=== PATIENT | female | born 1980 | race African-American/Black ===

== ENCOUNTER 2019-08-09 13:26 | Emergency (ER) | payer OTHER, SELFPAY ==
--- NOTE | 2019-08-09 13:31 | ED.URI ---
HPI - URI/Sore Throat General Chief Complaint: Upper Respiratory Infection Stated Complaint: congested/lindsay/cough/sore throat Time Seen by Provider: 08/09/19 13:55 Source: patient and RN notes reviewed Mode of arrival: ambulatory Limitations: no limitations History of Present Illness HPI Narrative: 39 old female presents with concern for sinus congestion, pressure, drainage, sore throat, headache, cough. Reports symptoms started Thursday. Reports taking [id number] cold medicines with little relief. MD elicited complaint: nasal congestion Related Data Home Medications Medication Instructions Recorded Confirmed lisinopril-hydrochlorothiazide 1 tablet PO DAILY 08/09/19 08/09/19 norethindrone-e.estradiol-iron 1 tablet PO DAILY 08/09/19 08/09/19 [07/11 (28)] Allergies Allergy/AdvReac Type Severity Reaction Status Date / Time azithromycin Allergy Mild Nausea and Verified 08/09/19 13:46 Vomiting Review of Systems Review of Systems: Narrative: CONSTITUTIONAL: Reports malaise, sweats. Denies chills or fever. EYES: Denies visual changes, redness, or discharge. ENT: Reports rhinorrhea, congestion, sinus pain, otalgia and sore throat. CARDIOVASCULAR: Denies chest pain, palpitations, or edema. RESPIRATORY: Reports cough. Denies dyspnea. GASTROINTESTINAL: Denies abdominal pain, nausea, vomiting, diarrhea SKIN: Denies rash or itching. MUSCULOSKELETAL: Denies myalgia. NEUROLOGIC: Denies headache. All systems reviewed & are unremarkable except as noted in HPI and below PMFSH Comments At time of signature, agree with nursing past medical, surgical, social and family history. There is no relevant family history pertinent to the presenting complaint Exam Narrative: Exam Narrative: GENERAL: Well-appearing, well-nourished, and in no acute distress. HEAD: Normocephalic EYES: PERRLA, conjunctivae clear ENT: Nares clear, turbinates edematous and erythematous, clear discharge. Mucous membranes moist. Right TM pearly craig with dull light reflex, left TM erythematous; no tragal tenderness. Oropharynx erythematous without lesions. Tonsils enlarged and without exudate, no drooling, no hoarseness, no trismus. NECK: Supple. No lymphadenopathy CHEST: Clear to auscultation, breath sounds equal. No wheezing, rhonchi, rales, or stridor. No respiratory distress, speaks in full sentences. HEART: Regular rate and rhythm. No murmur heard. Normal peripheral pulses. SKIN: Warm, dry, no rash. NEURO: Alert and oriented x3. PSYCH: Normal mood and affect Course Course Emergency Course: Patient is aware of diagnosis, understands and agrees to treatment plan. Anticipatory guidance given. Patient agrees to follow-up as directed and is aware of reasons to seek care at the emergency department. Portions of this record may have been created with voice recognition software Vital Signs Vital signs: Vital Signs Temperature 99.0 F 08/09/19 13:38 Pulse Rate 85 08/09/19 13:38 Respiratory Rate 18 08/09/19 13:38 Blood Pressure 140/81 08/09/19 13:38 Pulse Oximetry 100 08/09/19 13:38 Temperature 99.0 F 08/09/19 13:38 Pulse Rate 85 08/09/19 13:38 Respiratory Rate 18 08/09/19 13:38 Blood Pressure 140/81 08/09/19 13:38 Pulse Oximetry 100 08/09/19 13:38 Reviewed. Patient has current diagnosis of hypertension MDM - URI/Sore Throat MDM Narrative Medical decision making narrative: Differential diagnosis considered: Strep pharyngitis, allergic rhinitis, upper respiratory tract infection, sinusitis, rhinosinusitis, nasopharyngitis. viral pharyngitis, otitis media, otitis externa, pneumonia, bronchitis, viral cough syndrome, viral syndrome, and influenza. Exam findings show no acute concerns or changes; patient is non-toxic appearing and is in no distress. Patient is appropriate for outpatient treatment and follow-up. Lab Data Attestation: I reviewed the patient's lab results. Labs: Influenza A Screen
[2019-08-09 13:38] VITALS: BP 140/81; PULSE 85; RESP 18; TEMP 37.2; O2SAT 100
== END 2019-08-09 14:13 | disposition home or self-care (01) ==
PROVIDERS: Emergency Provider Nurse Practitioner; PCP Family Medicine
DX: H66.002 Acute suppurative otitis media without spontaneous rupture of ear drum, left ear (principal); I10 Essential (primary) hypertension; M32.9 Systemic lupus erythematosus, unspecified
CPT/HCPCS: 87804; 99213; G0463

== ENCOUNTER 2020-10-03 09:18 | Outpatient (CLI) | payer OTHER, SELFPAY | END 2020-10-03 09:19 | disposition home or self-care (01) | LOC: ANHCOVIDVC 09:18 | PROVIDERS: PCP Family Medicine | DX: Z23 Encounter for immunization (principal) | CPT/HCPCS: 0001A; 91300 ==

== ENCOUNTER 2020-10-24 09:16 | Outpatient (CLI) | payer OTHER, SELFPAY | END 2020-10-24 09:17 | disposition home or self-care (01) | LOC: ANHCOVIDVC 09:16 | PROVIDERS: PCP Family Medicine | DX: Z23 Encounter for immunization (principal) | CPT/HCPCS: 0002A; 91300 ==

== ENCOUNTER 2022-05-18 10:04 | Emergency (ER) | payer OTHER, SELFPAY ==
[2022-05-18 10:32] VITALS: BP 130/86; PULSE 68; RESP 18; TEMP 36.4; O2SAT 100
--- NOTE | 2022-05-18 11:02 | ED.GENADULT ---
HPI - General Adult General Chief complaint: Eye Problems Stated complaint: bilateral eye swelling Time Seen by Provider: 05/18/22 10:49 Source: patient Limitations: no limitations History of Present Illness HPI narrative: Patient presents today complaining of sinus pressure and drainage x2 weeks. She has been trying Sudafed, Zyrtec, and saline nasal spray without much relief. She is also complaining of bilateral eye drainage and eyelid swelling with morning crustiness since January while she was on vacation in [place]. Believe this was allergy symptoms and has been using Visine drops and Benadryl without much relief. Denies vision changes. Related Data Home Medications Medication Instructions Recorded Confirmed norethindrone 1 mg-ethinyl 1 tablet PO DAILY 08/09/19 05/18/22 estradiol 20 mcg (21)-iron 75 mg (7) tablet (07/11 (28)) cholecalciferol (vitamin D3) 50 50 mcg PO DAILY 04/05/21 05/18/22 mcg (2,000 unit) capsule Allergies Allergy/AdvReac Type Severity Reaction Status Date / Time azithromycin Allergy Mild Nausea and Verified 05/18/22 10:29 Vomiting Review of Systems Review of Systems: CONSTITUTIONAL: Denies body aches, fever, chills, or sweats. EYES: Denies visual changes, redness. + Bilateral eye drainage ENT: Denies rhinorrhea, congestion, sore throat, or otalgia.+ sinus pressure and drainage CARDIOVASCULAR: Denies chest pain, palpitations, or edema. RESPIRATORY: Denies cough or dyspnea. GASTROINTESTINAL: Denies abdominal pain, nausea, vomiting, or diarrhea. GENITOURINARY: Denies dysuria or hematuria. SKIN: Denies rash, itching, or wounds. MUSCULOSKELETAL: Denies back pain, joint pain, or myalgia. NEUROLOGIC: Denies headache, numbness, tingling, or weakness. PSYCH: Denies depression or anxiety. [facility] Past Medical History Medical History Benign essential HTN Constipation by delayed colonic transit GERD (gastroesophageal reflux disease) Irritable bowel syndrome Lupus (systemic lupus erythematosus) Preeclampsia Social History Social History Social History: Smoking status: Never smoker Second hand tobacco smoke exposure: No Alcohol intake: current Alcohol use details: Occasionally Substance use: never Substance use type: does not use Gender identity (if verbalized by the patient): Female Sexual Orientation (if Verbalized by the Patient): Straight or Heterosexual Comments At time of signature, I have reviewed and agree with nursing past medical, surgical, social and family history unless otherwise noted. Please see nursing chart for further information. There is no relevant family history pertinent to the presenting complaint Exam Narrative: GENERAL: Mildly ill-appearing, well-nourished, and in no acute distress. HEAD: Normocephalic, atraumatic. EYES: EOMI. PERRL. + bilateral injected conjunctiva. Slight swelling of the bilateral upper and lower eyelids. No obvious drainage at this time. ENT: Mucous membranes pink and moist. Nares Congested. Bilateral swollen and erythematous nasal turbinates. Bilateral tenderness of the maxillary and sphenoid sinuses. No rhinorrhea. Bilateral serous effusions without evidence of bacterial infection.. Throat normal. Uvula midline. NECK: Normal AROM. Supple. No lymphadenopathy. CHEST: No respiratory distress. Clear to auscultation. HEART: Regular rate and rhythm. No murmur appreciated. Normal peripheral pulses. EXTREMITIES: Normal range of motion. No edema. SKIN: Warm, dry, no rash. Capillary refill normal. Normal skin turgor. NEURO: No focal deficits. Alert and oriented x3. Gait steady. PSYCH: Normal affect. No signs of depression or anxiety. Course Course Level of Care: Express Care Visit Vital Signs Vital signs: Vital Signs Temperature 97.5 F L 05/18/22 10:32 Pul
== END 2022-05-18 11:17 | disposition home or self-care (01) ==
PROVIDERS: Emergency Provider Nurse Practitioner; PCP Family Medicine
DX: H10.9 Unspecified conjunctivitis (principal); J01.90 Acute sinusitis, unspecified; I10 Essential (primary) hypertension; K21.9 Gastro-esophageal reflux disease without esophagitis; M32.9 Systemic lupus erythematosus, unspecified
CPT/HCPCS: 99213; G0463

== ENCOUNTER → 2022-07-18 08:26 | Outpatient (CLI) | payer OTHER, SELFPAY ==
--- NOTE | ~2022-07-18 | US_ITS ---
Pelvic ultrasound. Clinical History: Fibroids Technique: Realtime transabdominal and transvaginal scanning of the pelvis was performed. Color flow Doppler and Doppler spectral analysis were performed. Findings: The uterus is retroverted. The endometrial stripe has a thickness of 4 mm. Ill-defined fun ayaka fibroid measures approximately 3.4 x 3.1 x 2.9 cm, intramural to partially subserosal. The right ovary measures 3.3 x 1.8 x 2.1 cm. No significant right ovarian or adnexal mass is seen. The left ovary measures 2.8 x 1.5 x 2.4 cm. No significant left ovarian or adnexal mass is seen. Vascular flow present in both ovaries. There is no evidence of free fluid in the cul de sac. Impression: 3.4 cm fundal fibroid, as detailed above. Reviewed, dictated and finalized at [facility]. [employer]IC[employer] Impression: 3.4 cm fundal fibroid, as detailed above.
== END ==
PROVIDERS: PCP Family Medicine; Visit Provider Obstetrics & Gynecology Gynecology
DX: D25.9 Leiomyoma of uterus, unspecified (principal)
CPT/HCPCS: 76830

== ENCOUNTER → 2022-09-15 10:11 | Outpatient (CLI) | payer OTHER, SELFPAY ==
--- NOTE | ~2022-09-15 | MM_ITS ---
EXAMINATION: MM screening yanelis BI w thad HISTORY: Screening TECHNIQUE: Craniocaudal and mediolateral oblique 3-D tomosynthesis images were obtained and synthetic 2-D images were generated. CAD analysis was submitted and interpreted. COMPARISON: No prior mammogram is available for comparison at this institution. BREAST PARENCHYMAL COMPOSITION: There are scattered areas of fibroglandular density. FINDINGS: There is a small 5 mm mass in the lower inner quadrant of the right breast posteriorly. No evidence for malignancy in the left breast. IMPRESSION: 1. Focal 5 mm right breast mass, lower inner quadrant posteriorly. 2. Additional spot compression and mediolateral views with possible follow-up breast ultrasound recom mended. BI-RADS Category 0: Incomplete: Needs additional imaging evaluation. Reviewed, dictated and finalized at location A. IMPRESSION: 1. Focal 5 mm right breast mass, lower inner quadrant posteriorly. 2. Additional spot compression and mediolateral views with possible follow-up b reast ultrasound recommended. BI-RADS Category 0: Incomplete: Needs additional imaging evaluation.
== END ==
PROVIDERS: PCP Family Medicine; Visit Provider Obstetrics & Gynecology Gynecology
DX: Z12.31 Encounter for screening mammogram for malignant neoplasm of breast (principal); N63.10 Unspecified lump in the right breast, unspecified quadrant
CPT/HCPCS: 77063; 77067

== ENCOUNTER 2022-09-20 08:54 | Outpatient (CLI) | payer OTHER, SELFPAY ==
[2022-09-20 09:22] LABS: Hematocrit 38.1 % (37.0-47.0); Hemoglobin 11.9 g/dL (12.0-15.0)
== END 2022-09-20 08:55 | disposition home or self-care (01) ==
PROVIDERS: PCP Family Medicine; Visit Provider Obstetrics & Gynecology Gynecology
DX: N81.4 Uterovaginal prolapse, unspecified (principal); Z01.818 Encounter for other preprocedural examination
CPT/HCPCS: 36415; 85014; 85018; 86850; 86900; 86901

== ENCOUNTER 2022-09-29 00:06 | Day surgery (SDC) | payer OTHER, SELFPAY ==
--- NOTE | 2022-09-17 14:32 | PC.NURSE ---
Report to the Outpatient Waiting Room, entrance under the green pavilion located off [facility], at time 0600 on date 09/29/22. Planned Procedure Time:0730. Time changes happen often and if your time is changed the preop area will call you the afternoon before. - You and your visitor will be asked to self-screen and do not enter if you have any COVID symptoms. - Only one visitor is requested with a max of two and NO children visitors are allowed at this time. - The patient visitor may be requested to leave or wait in car when not with patient due to distancing restrictions. - A mask is optional within the hospital at this time. Patients may have clear liquids (water, carbonated beverages, clear teas, apple juice) until 3 hours prior to surgery with a maximum of 20 ounces. 0430 - No food from midnight until time of surgery - Infants may have breast milk until 4 hours before surgery, formula 6 hours prior to surgery. - Children will be allowed to drink immediately following surgery. If applicable, please bring a bottle or sippy cup to assist with drinking. Juice, water, soda, and popsicles are readily available. For infants on formula, please bring formula the day of surgery. Pacifiers are allowed. Take the following medications with a SIP of water the morning of surgery: amlodipine, control, omeprazole DO NOT STOP ANY OF YOUR OTHER PRESCRIPTION MEDICATIONS PRIOR TO SURGERY ?EXCEPT THE FOLLOWING Medications to discontinue per physician lisinopril, vitamins ans and supplements Date to take last dose lisinopril- 09/28/22, vitamins & supplements 09/26/22 Please no make-up, nail divehi, hairspray, perfume, deodorant, or body powder the day of surgery. No jewelry (including any body piercings) or valuables the day of surgery, leave them at home. Please take a shower or bath the night before, or the morning of, surgery with an antibacterial soap. Wear comfortable, loose fitting clothing. Children are encouraged to wear pajamas. - Jewelry must be removed prior to entering the operating room. Rings and piercings that are not removed may be cut off. - The hospital will not accept responsibility for valuables. - Please leave all valuables, including medications, at home the day of surgery. If you are going home after surgery, a licensed helper/driver must drive you home. - NO public transportation without another adult if you receive anesthesia. - We recommend that an adult stay with you for 24 hours following discharge. - We also recommend that you do not drive, make important decision, drink alcoholic beverages, or take any drugs that were not prescribed by your health care provider for at least 24 hours after your discharge time. For Pediatric surgeries, we recommend two adults accompany the child home. Follow any additional instructions given to you from your surgeon. If you or anyone in your household have experienced Covid symptoms in the past week, please notify your surgeon or the nurse liaison at the phone number below for possible testing. Telephone instructions given to Veronica Bryce and asked if any additional questions and then verbalized understanding. Patient advised to call surgeon office or pre surgery nurse liaison [phone] if any additional questions.
[2022-09-17 14:41] VITALS: BMI 31.5
[2022-09-29] VITALS (10 sets, daily range): BP systolic 110–162; BP diastolic 63–90; PULSE 62–86; RESP 12–18; TEMP 36.3–37.2; O2SAT 97–100
[2022-09-29] MEDS: ACETAMINOPHEN 500 MG TABLET 1000 MG PO (06:00)
[2022-09-29] MEDS: KETOROLAC 15 MG/ML VIAL (*BKC) IV PUSH (06:00)
[2022-09-29] MEDS: LACTATED RINGERS 1,000 ML 30 ML IV CONT ×2 (06:30→09:19)
--- NOTE | 2022-09-29 06:45 | P.PNAN_ITS ---
Anes - Initial Pre Proc Eval Procedure: Operation Date: 09/29/22 07:30 Proposed Procedures p Laparoscopic Assisted Vaginal Hysterectomy with Bilateral Salpingectomy - Desiree Anderson MD Date/Time: 09/29/22 06:45 Surgeon: Desiree Anderson MD Pre Op Diagnosis: Uterine Prolapse Patient Data Age: 42 Gender: F Height: 1.68 m Weight: 88.6 kg Allergies Allergy/AdvReac Type Severity Reaction Status Date / Time azithromycin Allergy Mild Nausea and Verified 09/17/22 14:10 Vomiting Home Medications Medication Instructions Recorded Confirmed Type norethindrone 1 mg-ethinyl 1 tablet PO DAILY 08/09/19 09/17/22 History estradiol 20 mcg (21)-iron 75 mg (7) tablet (07/11 ()) cholecalciferol (vitamin D3) 50 50 mcg PO DAILY 04/05/21 09/17/22 History mcg (2,000 unit) capsule lisinopril 20 1 tablet PO DAILY #90 tabs 09/15/22 09/17/22 Rx mg-hydrochlorothiazide 25 mg tablet omeprazole 40 mg capsule,delayed See Rx Instructions .Route 09/15/22 09/17/22 Rx release .COMPLEX #90 caps amlodipine 10 mg tablet 10 mg PO DAILY 09/17/22 09/17/22 History vitamin B complex (B 1 tablet PO DAILY 09/17/22 09/17/22 History Complex-Vitamin B12 tablet) Patient hx anesthesia problems: none Family hx anesthesia problems: none Results Review: All pre-operative results and documents have been reviewed as part of the pre- operative evaluation. [facility] Past Medical History Medical History Benign essential HTN Constipation by delayed colonic transit GERD (gastroesophageal reflux disease) Irritable bowel syndrome Lupus (systemic lupus erythematosus) Preeclampsia Social History Social History Social History: Smoking status: Never smoker Second hand tobacco smoke exposure: No Alcohol intake: current Alcohol use details: 1-2 drinks per month Substance use: current Substance use type: marijuana Other substance usage details: gummy Living arrangements: with family Occupation/Education: occupation Gender identity (if verbalized by the patient): Female Sexual Orientation (if Verbalized by the Patient): Straight or Heterosexual Spiritual care concerns: No Anes - Eval Final PreProcedure Day of Procedure 09/29/22 06:45 Patient weight: obese Heart: regular rate and rhythm Lungs: clear to auscultation Airway: Mallampati scale class II Neurological: alert and oriented Last oral intake: >/= 8 hours ASA classification: III Emergent: no Anesthetic plan: proceed Anesthesia type and monitoring: general ETT and standard monitoring Results Review: All pre-operative results and documents have been reviewed as part of the pre- operative evaluation. Informed Consent: The patient's anesthetic plan and its attendant risks and benefits were discussed with the patient/family/POA. Questions were solicited and answers provided to the satisfaction of the patient/family/POA.
--- NOTE | 2022-09-29 07:22 | WPDHPUPDATE1 ---
History and Physical Update Update Date/Time: 09/29/22 07:22 History and Physical has been reviewed, including an updated exam of the patient. There are NO changes in the patient's condition. Risks, benefits, and alternatives have been discussed and questions answered. Patient agrees to proceed with procedure.
--- NOTE | 2022-09-29 07:22 | PM.IMHP ---
H&P: HPI History of Present Illness Date/Time: 09/29/22 07:22 Chief Complaint: uterine prolapse Narrative: the patient is a 42-year-old 1 para 1 admitted for laparoscopic assisted total vaginal hysterectomy bilateral salpingectomy. The patient has complaints of pelvic pressure and try to use the pessary. Patient did not like her pessary. She has elected to proceed with hysterectomy. Due to the history of section and fibroids the plan is for laparoscopic assisted vaginal hysterectomy. In addition the patient would prefer her tubes to be removed if possible after reviewing the benefits. Risks of infection, bleeding, injury to internal organs ( bowel, bladder, ureters, ovaries), deep vein thrombosis, and conversion to open procedure were reviewed. Patient voices understanding and agrees to proceed. The patient did receive medical clearance from her primary physician. Review of Systems Review of Systems: All systems reviewed & are unremarkable except as noted in HPI and below ( History of present on the) [facility] Past Medical History Medical History (Updated 09/29/22 @ 07:29 by Desiree Anderson MD) Benign essential HTN Constipation by delayed colonic transit GERD (gastroesophageal reflux disease) Irritable bowel syndrome Lupus (systemic lupus erythematosus) Preeclampsia 2018 Surgical History Surgical History (Updated 09/29/22 @ 07:26 by Desiree Anderson MD) History of Social History Social History Social History: Smoking status: Never smoker Second hand tobacco smoke exposure: No Alcohol intake: current Alcohol use details: 1-2 drinks per month Substance use: current Substance use type: marijuana Other substance usage details: gummy Living arrangements: with family Occupation/Education: occupation Gender identity (if verbalized by the patient): Female Sexual Orientation (if Verbalized by the Patient): Straight or Heterosexual Spiritual care concerns: No Meds Home Medications and Allergies Home Medications Medication Instructions Recorded Confirmed Type norethindrone 1 mg-ethinyl 1 tablet PO DAILY 08/09/19 09/29/22 History estradiol 20 mcg (21)-iron 75 mg (7) tablet (June07/11 (28)) cholecalciferol (vitamin D3) 50 50 mcg PO DAILY 04/05/21 09/29/22 History mcg (2,000 unit) capsule lisinopril 20 1 tablet PO DAILY #90 tabs 03/27/23 04/10/23 Rx mg-hydrochlorothiazide 25 mg tablet omeprazole 40 mg capsule,delayed See Rx Instructions .Route 09/15/22 09/29/22 Rx release .COMPLEX #90 caps amlodipine 10 mg tablet 10 mg PO DAILY 09/17/22 09/29/22 History vitamin B complex (B 1 tablet PO DAILY 09/17/22 09/29/22 History Complex-Vitamin B12 tablet) Allergies Allergy/AdvReac Type Severity Reaction Status Date / Time azithromycin Allergy Mild Nausea and Verified 09/29/22 06:59 Vomiting Vital Signs Vital Signs - 24 hr 09/29/22 06:30 Temperature 97.6 F Pulse Rate 69 Respiratory Rate 16 Blood Pressure 162/90 H Pulse Oximetry 100 Oxygen Delivery Room Air Exam Const: General: healthy appearing and alert Orientation/consciousness: patient oriented x3 Resp: Effort & Inspection: normal respiratory effort GI: GI Palp: Yes Soft to palpation, No Tenderness to palpation present (GI) and No Palpable mass present : External Female Exam: normal external appearance Speculum Exam - Vagina: normal appearance of the vagina and normal vaginal discharge Speculum Exam - Cervix: normal appearance of the cervix Bimanual exam- vagina & uterus: consistency normal, enlarged ( 7Cm with a 3cm fundal fibroid by ultrasound) and other ( uterine descent to introitus with Valsalva; no rectocele; 1st cystocele) Bimanual Exam- Adnexa, other: normal adnexae and No adnexal tenderness Neuro: General: patient oriented x3 Assessment and Plan Assessment and plan (1) Ut
[2022-09-29] MEDS: ceFAZolin 2 GM/D5W 50 ML 2 GM/50 ML BAG IVPB (07:34)
--- NOTE | 2022-09-29 09:09 | W.PM.PROC2 ---
Procedure Note - Detailed Date of Procedure 09/29/22 Pre-op Diagnosis Uterine Prolapse Post-op Diagnosis Same Procedure Performed laparoscopic-assisted vaginal hysterectomy bilateral salpingo-oophorectomy Surgeon Desiree Anderson MD Anesthesia General Findings normal-appearing tubes, ovaries, and uterus with a fundal fibroid; uterus prolapsed to the introitus under anesthesia Description of Procedure The patient is taken to the operating room and placed under anesthesia in the dorsal lithotomy position. She was prepped and draped in the usual sterile fashion. Bladder is drained with a Pacheco catheter which was left in place prior to my arrival. The bivalve speculum was placed in the vagina and the cervix grasped on the anterior lip with a tenaculum. The acorn manipulator was placed and the speculum removed. Attention was then turned to the abdomen where a vertical skin incision was made at the base of the umbilicus. The abdomen is tented with towel clamps and the Veress needle placed. Opening patient pressure was 6mmHg. Pneumoperitoneum was attempted to be obtained but patient pressure went quickly to 15. Veress needle was replaced and the same events occurred. The decision was made to place the port in the left upper quadrant. A scalpel was used to make a skin incision 1cm horizontal in the left upper quadrant. Veress needle was placed and opening patient pressure is 6mmHg. Pneumoperitoneum was attempted to be obtained but the patient had bradycardic episode. Pneumoperitoneum was released and the patient was treated by anesthesia see their notes. The 5mm long Optiview was then placed and intra-abdominal placement confirmed with the laparoscope. Pneumoperitoneum was obtained through the laparoscope port. Patient was placed in Trendelenburg and 2 incisions were made above the symphysis pubis 1 to the left 1 to the right and 5mm ports were placed in each. The blunt probe was used to inspect the pelvis with the above-stated findings. The right tube was grasped with an atraumatic grasper and the LigaSure was used to remove the tube which was removed through the port. The round ligament is also grasped with the LigaSure and cauterized and . The identical procedure was performed on the left side. The laparoscope is removed and the ports left in place. Pneumoperitoneum was reduced and attention was returned to the vagina. The short weighted speculum was placed posteriorly and a Bryn retractor was placed anteriorly. The cervix is injected in a circumferential manner with 1% lidocaine with epinephrine. A scalpel then used to incise the vaginal mucosa in a circumferential manner around the cervix. The vaginal mucosa was dissected off anteriorly with sharp blunt dissection. Once the peritoneum is entered sharply the Bryn retractor was replaced intraperitoneally. The posterior peritoneum was dissected off using sharp and blunt dissection. Once the peritoneum was entered it is entered sharply and the long curved weighted speculum was placed. The uterosacral and cardinal ligaments are serially clamped, transected, and suture ligated with 0 Vicryl. They were tagged for future use. The uterine vessels are clamped, transected, and suture ligated with 0 Vicryl. The posterior fundus is grasped with a towel clamp and the uterus delivered through the cul-de-sac. The remaining posterior leaf of the broad ligaments and utero-ovarian ligament is clamped, transected, and suture ligated with 0 Vicryl. The specimen was handed off. All pedicles were inspected and noted to be hemostatic. The long weighted speculum was removed and the short weighted speculum replaced. The Bryn retractor was removed from the peritoneum and the peritoneum was grasped anteriorly and posteriorly with a Peon. The peritoneum was then closed incorporating the previously tagged uterosacral and cardinal ligaments. The peritoneum was closed in a pursestring manner.
--- NOTE | 2022-09-29 09:18 | PM.DS ---
DS: Admitting Diagnosis Discharge Date 09/30/22 Admitting Diagnosis uterine prolapse DS: Discharge Diagnosis Discharge Diagnosis (1) Status post laparoscopic assisted vaginal hysterectomy (LAVH): Code(s): Z90.710 - Acquired absence of both cervix and uterus Status: Acute DS: Summary Hospital Course Hospital Course: At the time of discharge, the patient is tolerating regular diet, voiding, and ambulating. Status at Discharge Functional status at discharge: independent ambulation Overall status at discharge: patient is progressing back to baseline Time Spent with Patient Time attestation: Total time spent providing and/or coordinating discharge services: DS: Data Data Completed and Pending Pending studies at discharge: Pending at discharge 09/29/22 08:58 Surgical [PTH] Routine Discharge Plan Discharge Patient Disposition: Home, Self-Care Discharge Instructions: pelvic rest; no driving x 2 weeks Stand Alone Forms: General Discharge Instructions Follow-up/Referrals: Desiree Anderson MD [Physician] - Discharge Medications: New hydrocodone-acetaminophen 5-325 mg tablet 1 tablet PO Q4H PRN (Reason: pain) Qty: 20 0RF Continued cholecalciferol (vitamin D3) 50 mcg (2,000 unit) capsule 50 mcg PO DAILY lisinopril-hydrochlorothiazide 20-25 mg tablet 1 tablet PO DAILY Qty: 90 2RF omeprazole 40 mg capsule,delayed release(DR/EC) See Rx Instructions .ROUTE .COMPLEX Qty: 90 3RF Dose Instruction: Take 1 capsule by mouth once daily Rx Instructions: Take 1 capsule by mouth once daily vitamin B complex [B Complex-Vitamin B12] Tablet 1 tablet PO DAILY amlodipine 10 mg tablet 10 mg PO DAILY Discontinued norethindrone-e.estradiol-iron [07/11 (28)] 1 mg-20 mcg (21)/75 mg (7) Tablet 1 tablet PO DAILY Other Ambulatory Orders: Basic Metabolic Panel (Routine) Timeframe: 3 Weeks Location: Determined by Patient Ordered By: Stephon Escalante
[2022-09-29] MEDS: fentaNYL CITRATE INJ (*CRX) 100 MCG/2 ML VIAL 25 MCG IV PUSH ×2 (09:50→10:00)
--- NOTE | 2022-09-29 10:26 | ADMGEN ---
This patient, Veronica Wu, was admitted to OB 2nd Floor Room 289-00. Patient/family oriented to hospital policies and general routines including ID bracelet, bed and alarms, visiting hours, pain management, procedures, bathroom and other care routines, personal items, smoking policy, room service/diet, and visiting hours. Information on how to activate the Rapid Response Team has been discussed. Patient/Family are encouraged to report perceived risks to care and to ask questions if they do not understand what they are told or what they should do.
[2022-09-29] MEDS: DEXTROSE 5%/LACTATED RINGERS 1,000 ML 125 ML IV CONT (10:53)
[2022-09-29] MEDS: KETOROLAC 30 MG/ML VIAL (*BKC) IV PUSH ×3 (10:54→22:40)
[2022-09-29] MEDS: HYDROcodone/acetaminophen (*CRX) 10-325 MG TABLET 1 TAB PO ×4 (12:31→22:40)
[2022-09-29] MEDS: SIMETHICONE 80 MG TAB.CHEW PO (14:57)
[2022-09-29] MEDS: ONDANSETRON INJ 4 MG/2 ML VIAL IV PUSH (17:51)
[2022-09-29] MEDS: LORATADINE 10 MG TABLET PO (19:26)
[2022-09-30 04:20] VITALS: BP 136/75; PULSE 62; RESP 18; TEMP 36.5; O2SAT 99
[2022-09-30] MEDS: HYDROcodone/acetaminophen (*CRX) 10-325 MG TABLET 1 TAB PO (04:20)
[2022-09-30] MEDS: KETOROLAC 30 MG/ML VIAL (*BKC) IV PUSH (04:20)
[2022-09-30 04:43] LABS: Basophils Percent Auto 0.1 % (0.2-1.2); Hematocrit 34.1 % (37.0-47.0); Hemoglobin 10.8 g/dL (12.0-15.0); Immature Granulocyte Absolute 0.05 K/mm3 (0.00-0.031); Immature Granulocyte Percent A 0.4 % (0-0.5); Lymphocytes Percent Auto 9.7 % (18.3-44.2); Mean Corpuscular HGB Conc 31.7 g/dl (32-36); Mean Corpuscular Volume 69.6 fl (80-100); Mean Platelet Volume 9.9 fl (7.4-10.4); Monocytes Absolute Auto 1.1 K/mm3 (0.1-0.6); Monocytes Percent Auto 8.3 % (2.6-8.5); Neutrophils Absolute Auto 10.9 K/mm3 (1.3-6.7); Neutrophils Percent Auto 81.5 % (45.5-73.1); Platelet Count Result 416 k/mm3 (150-375); White Blood Count 13.4 K/mm3 (4.5-10.0)
[2022-09-30 05:17] LABS: Hypochromasia 1+ (NORMAL); Microcytosis 2+ (NORMAL); Schistocytes None Seen (NORMAL)
--- NOTE | 2022-09-30 07:59 | PM.GYNPNOP ---
CLERK MANAGER - A/P Postoperative Procedures: Procedures Operation Date: 09/29/22 07:30 Actual Procedure Side Surgeon p Laparoscopic Assisted Vaginal Hysterectomy with Bilateral Salpingectomy Bilateral Desiree Anderson MD Postoperative day: 1 Postoperative status: doing well Postoperative plan: routine post-op care Time Spent With Patient Time: Total time spent is greater than 50% in coordination of care (as documented) at patient's floor/unit and/or counseling patient: Time with patient: less than 15 minutes CLERK MANAGER- PN:Subj Post-Op Subjective Date/time seen: 09/30/22 07:59 Subjective: patient has no complaints and pain is well controlled Exam Narrative: abdomen soft, nt inc-bandages clear CLERK MANAGER - PN: Obj Data Vital Signs Vital Signs: Vital Signs - 24 hr 09/29/22 09:19 09/29/22 09:30 09/29/22 09:45 Temperature 98.2 F Pulse Rate 86 74 69 Respiratory Rate 16 15 12 Blood Pressure 110/69 121/80 126/79 Pulse Oximetry 97 100 97 Oxygen Delivery Simple Face Mask Simple Face Mask Room Air Oxygen Flow Rate 8 8 09/29/22 10:00 09/29/22 10:15 09/29/22 10:40 Temperature 97.4 F L Pulse Rate 74 69 62 Respiratory Rate 14 17 16 Blood Pressure 126/77 130/80 122/71 Pulse Oximetry 97 98 98 Oxygen Delivery Room Air Room Air Oxygen Flow Rate 09/29/22 15:30 09/29/22 15:30 09/29/22 18:50 Temperature 99.0 F 98.1 F Pulse Rate 76 79 Respiratory Rate 16 18 Blood Pressure 126/63 136/75 Pulse Oximetry 100 98 Oxygen Delivery Room Air Oxygen Flow Rate 09/29/22 18:50 09/29/22 22:40 09/29/22 22:40 Temperature 97.9 F Pulse Rate 70 Respiratory Rate 18 Blood Pressure 132/69 Pulse Oximetry 99 Oxygen Delivery Room Air Room Air Oxygen Flow Rate 09/30/22 04:20 09/30/22 04:20 Temperature 97.7 F Pulse Rate 62 Respiratory Rate 18 Blood Pressure 136/75 Pulse Oximetry 99 Oxygen Delivery Room Air Oxygen Flow Rate Intake/Output Intake/Output: Intake & Output 09/27/22 09/28/22 09/29/22 09/30/22 23:59 23:59 23:59 23:59 Intake Total 2500 350 Output Total 2120 650 Balance 380 -300 Meds/Results Medications: Active Medications Generic Name Dose Route Start Last Admin Trade Name Freq PRN Reason Stop Dose Admin Hydrocodone Bitart/Acetaminophen 1 tab 09/29/22 10:21 Hydrocodone/Acetaminophen (*Crx) 5-325 Mg Tablet PO Q3H PRN Pain Rated 5 or Less Hydrocodone Bitart/Acetaminophen 1 tab 09/29/22 10:21 09/30/22 04:20 Hydrocodone/Acetaminophen (*Crx) 10-325 Mg Tablet PO 1 tab Q3H PRN Administration Pain Rated 6 or Greater Amlodipine Besylate 10 mg 09/30/22 09:00 Amlodipine Besylate 5 Mg Tablet PO DAILY MARIANO Hydrochlorothiazide 25 mg 09/30/22 09:00 Hydrochlorothiazide 25 Mg Tablet PO QAM MARIANO Fentanyl Citrate 600 mcg in 30 mls @ 0.5 mls/hr 09/29/22 10:21 Fentanyl 600 Mcg/Ns 30 Ml Medical Recruiter IV CONT PRN PRN MEDICAL RECORD ASSISTANT Management Protocol 10 MCG/HR Ibuprofen 600 mg 09/29/22 10:21 Ibuprofen 600 Mg Tablet PO Q6H PRN Cramping Ketorolac Tromethamine 30 mg 09/29/22 10:21 09/30/22 04:20 Ketorolac 30 Mg/Ml Vial (*Bkc) IV PUSH 10/04/22 10:20 30 mg Q6H PRN Administration Pain Rated 4-6 Lisinopril 20 mg 09/30/22 09:00 Lisinopril 20 Mg Tablet PO QAM MARIANO Naloxone HCl 0.1 mg 09/29/22 10:21 Naloxone Hcl 0.4 Mg/Ml Vial IV PUSH Q2M PRN Respiratory rate less than 10 Ondansetron HCl 4 mg 09/29/22 10:21 09/29/22 17:51 Ondansetron Inj 4 Mg/2 Ml Vial IV PUSH 4 mg Q6H PRN Administration Nausea And Vomiting Simethicone 80 mg 09/29/22 10:21 09/29/22 14:57 Simethicone 80 Mg Tab.Chew PO 80 mg Q2H PRN Administration Gas Labs 09/30/22 04:25 Labs: Laboratory Results - last 24 hr 09/30/22 04:25 WBC 13.4 H RBC 4.90 Hgb 10.8 L Hct 34.1 L MCV 69.6 L MCH 22.0 L MCHC 31.7 L RDW 15.0 H Plt Count 416
[2022-09-30 08:25] VITALS: BP 135/79; PULSE 61; RESP 16; TEMP 36.6; O2SAT 100
[2022-09-30] MEDS: DOCUSATE SODIUM 100 MG CAPSULE PO (08:56)
[2022-09-30] MEDS: SIMETHICONE 80 MG TAB.CHEW PO (08:56)
[2022-09-30] MEDS: HYDROcodone/acetaminophen (*CRX) 5-325 MG TABLET 1 TAB PO (08:56)
[2022-09-30] MEDS: hydroCHLOROthiazide 25 MG TABLET PO (08:59)
[2022-09-30] MEDS: lisinopriL 20 MG TABLET PO (08:59)
== END 2022-09-30 10:35 | disposition home or self-care (01) ==
LOC: ANHSURGERY 09:19 → ANHOB2 10:28
PROVIDERS: PCP Family Medicine; Visit Provider Obstetrics & Gynecology Gynecology
PROC: 0UT9FZZ Resection of Uterus, Via Natural or Artificial Opening With Percutaneous Endoscopic Assistance (ICD-10-PCS; CPT 58552; principal; 2022-09-29 07:30)
DX: N81.4 Uterovaginal prolapse, unspecified (principal); D25.9 Leiomyoma of uterus, unspecified; I10 Essential (primary) hypertension; K21.9 Gastro-esophageal reflux disease without esophagitis; M32.9 Systemic lupus erythematosus, unspecified; F12.90 Cannabis use, unspecified, uncomplicated; E66.9 Obesity, unspecified; Z68.31 Body mass index [BMI] 31.0-31.9, adult
CPT/HCPCS: 58552; 36415; 85014; 85018; 85025; 86850; 86900; 86901; 88307; 99199; A9270; J0690; J1100; J1170; J1885; J2250; J2405; J2704; J3010; J7120; J7121

== ENCOUNTER → 2022-10-14 09:16 | Outpatient (CLI) | payer OTHER, SELFPAY ==
--- NOTE | ~2022-10-14 | MMUS_ITS ---
EXAMINATION: MM diagnostic yanelis RT w thad, US breast RT limited HISTORY: Focal 5 mm right breast mass, posterior right lower inner quadrant TECHNIQUE: Additional 3-D tomosynthesis images of the right breast were performed and synthetic 2-D i mages were generated. CAD analysis was submitted and interpreted. High resolution targeted right limi samara breast ultrasound was performed. COMPARISON: 09/15/2022 bilateral screening mammogram FINDINGS: MAMMOGRAPHIC FINDINGS: There is a circumscribed approximately 3.6 mm opacity in the deep posterior mid to lower inner right breast at approximately 4:00 position. ULTRASOUND: At 4:00 8 cm from the nipple there is a very posterior approximately 3.4 x 5 mm sonolucency with back wall enhancement, consistent with a small cyst. IMPRESSION: 1. Benign finding 2. Routine annual mammographic screening is recommended BI-RADS Category 2: Benign finding(s). Reviewed, dictated and finalized at location A. IMPRESSION: 1. Benign finding 2. Routine annual mammographic screening is recommended BI-RADS Category 2: Benign finding(s).
== END ==
PROVIDERS: PCP Family Medicine; Visit Provider Obstetrics & Gynecology Gynecology
DX: R92.8 Other abnormal and inconclusive findings on diagnostic imaging of breast (principal)
CPT/HCPCS: 76642; 77061; 77065; G0279

== ENCOUNTER 2024-08-07 12:44 | Emergency (ER) | payer OTHER, SELFPAY ==
--- NOTE | 2024-08-07 13:05 | ED_ITS ---
HPI - URI/Sore Throat General Chief Complaint: Upper Respiratory Infection Stated Complaint: Flu Symptoms Time Seen by Provider: 08/07/24 13:15 Source: patient Mode of arrival: ambulatory Limitations: no limitations History of Present Illness HPI Narrative: Veronica is a 44-year-old female patient presenting to the clinic today with complaints of cough, runny nose, congestion, nausea, and body aches times 4-5 days. No known fever. Denies any chest pain or shortness of breath. MD elicited complaint: cough and nasal congestion Related Data Home Medications ?Medication ?Instructions ?Recorded ?Confirmed ?Last Taken ?Type cholecalciferol (vitamin D3) 50 50 mcg PO DAILY 04/05/21 03/01/24 09/17/22 History mcg (2,000 unit) capsule vitamin B complex (B 1 tablet PO DAILY 09/17/22 03/01/24 09/15/22 History Complex-Vitamin B12 tablet) Allergies Allergy/AdvReac Type Severity Reaction Status Date / Time azithromycin Allergy Mild Nausea and Verified 08/07/24 12:58 Vomiting Review of Systems Review of Systems: Pertinent positives per HPI. Patient denies any fever, chills, rash, headache, visual changes, dizziness, shortness of breath, chest pain, palpitations, nausea, vomiting, diarrhea, constipation, abdominal pain, or any urinary issues. [facility] Past Medical History Medical History Constipation by delayed colonic transit Preeclampsia 2018 GERD (gastroesophageal reflux disease) Irritable bowel syndrome Lupus (systemic lupus erythematosus) Benign essential HTN Surgical History Surgical History History of Social History Social History Social History: Smoking status: Never smoker Second hand tobacco smoke exposure: No Alcohol intake: current Alcohol use details: 1-2 drinks per month Substance use: current Substance use type: marijuana Other substance usage details: gummy Do You Feel Safe in your Home?: Yes Lack of Transportation: No Lack of Food: Never True Current Housing: I Have Housing Concerned About Future Housing: No Difficulty Paying Gas/Electric Bills: No Difficulty Paying for Meds: No Currently Unemployed: No Education: Don't Know Difficulty w/ Childcare or Family Care: No Living arrangements: with family Occupation/Education: occupation Gender identity (if verbalized by the patient): Female Sexual Orientation (if Verbalized by the Patient): Straight or Heterosexual Spiritual care concerns: No Comments At the time of my signature, I reviewed and agree with the nursing past medical, surgical, social, and family history. There is no relevant family history pert inent to the patient complaint. Exam Narrative: General: Well-developed, well nourished, in no apparent distress Head: Normocephalic, atraumatic Eyes: Pupils equally round and reactive to light bilaterally, EOM intact, sclera and conjunctive clear, no discharge, lids normal Ears: TMs intact and congested, ear canals clear, no drainage, grossly hearing normal. Nose: Nares patent, clear nasal discharge, no inflammation, no sinus tenderness. Mouth: Oral pharynx without lesions or masses, good dentition, MMM. Neck: Supple, trachea midline, no enlargement of anterior or posterior cervical nodes, no thyroid masses or goiter palpable. Cardio: Regular rate and rhythm, s1 and s2 normal, no murmur appreciated. Resp: Clear to auscultation bilaterally, no rhonchi, rales, wheezing or rubs Course Course Emergency Course: Portions of this record may have been created with voice recognition software. Level of Care: Express Care Visit Vital Signs Vital signs: Vital signs reviewed MDM - URI/Sore Throat MDM Narrative Medical decision making narrative: At the time of visit patient is resting comfortably on the exam table. Patient appears to be nontoxic. Labs: Influenza testing was negative in the clinic today. Plan: I suspect patient has URI/viral syndrome. Supportive measures were discussed with the patient and they voiced understanding discharge instructions and agrees to treatment plan. Return precautions reviewed Differential Diagnosis Differential diagnosis: Likely upper respiratory infection, otitis media, sinusitis, viral infection, bronchitis, influenza, pharyngitis and other (COVID) Discharge Plan Discharge Clinical Impression: Viral infection Upper respiratory infection Qualifiers: URI type: unspecified URI Qualified Code(s): J06.9 - Acute upper respiratory infection, unspecified Patient Disposition: Home, Self-Care Condition: Stable Instructions: Antibiotic Form, Viral Syndrome (ED), Cold Symptoms (ED) Additional Instructions: Influenza testing was negative in the clinic today. No sign of bacterial infection in the clinic today May take Coricidin HBP for cold/flu symptoms Increase fluids and stay well hydrated Tylenol/motrin for pain/fever Flonase and OTC antihistamines as directed Vicks vapor rub to open sinuses Sinus rinses for congestion Cepacol spray, cough drops, throat lozenges, warm tea with honey/lemon, gargle salt water to soothe throat BRAT diet for diarrhea Clear liquids x 24 hours then advance as tolerated for nausea/vomiting Go to the ED if you develop a worsening in your condition- high fever not controlled by Tylenol or Motrin, dehydration, weakness, lethargy, shortness of breath, or chest pain. Follow up with your PCP in 3-5 days if symptoms persist. Patient Language: Guyanese Prescriptions: No Action cholecalciferol (vitamin D3) 50 mcg (2,000 unit) capsule 50 mcg PO DAILY vitamin B complex [B Complex-Vitamin B12] Tablet 1 tablet PO DAILY dicyclomine 10 mg capsule See Rx Instructions .ROUTE .COMPLEX Qty: 180 3RF Dose Instruction: Take 1 capsule by mouth twice daily Rx Instructions: Take 1 capsule by mouth twice daily montelukast 10 mg tablet See Rx Instructions .ROUTE .COMPLEX Qty: 90 1RF Dose Instruction: Take 1 tablet by mouth once daily Rx Instructions: Take 1 tablet by mouth once daily omeprazole 40 mg capsule,delayed release(DR/EC) See Rx Instructions .ROUTE .COMPLEX Qty: 90 0RF Dose Instruction: Take 1 capsule by mouth once daily Rx Instructions: Take 1 capsule by mouth once daily amlodipine 10 mg tablet See Rx Instructions .ROUTE .COMPLEX Qty: 90 1RF Dose Instruction: Take 1 tablet by mouth once daily Rx Instructions: Take 1 tablet by mouth once daily lisinopril-hydrochlorothiazide 20-25 mg tablet See Rx Instructions .ROUTE .COMPLEX Qty: 90 1RF Dose Instruction: Take 1 tablet by mouth once daily Rx Instructions: Take 1 tablet by mouth once daily fluticasone propionate 50 mcg/actuation spray,suspension See Rx Instructions .ROUTE .COMPLEX Qty: 16 5RF Dose Instruction: Use 1 spray(s) in each nostril once daily Rx Instructions: Use 1 spray(s) in each nostril once daily Follow-up/Referrals: PHYSICIAN,POOL PLAYER [Primary Care Provider] - Time of Disposition: 13:16 Quality NIHSS Nursing Documentation ED NIHSS nursing documentation: reviewed/agree
[2024-08-07 13:12] VITALS: BP 131/83; PULSE 74; RESP 16; TEMP 37.2; O2SAT 100
[2024-08-07 13:21] LABS: EDINFLUASCREEN Negative (Negative); EDINFLUBSCREEN Negative (Negative)
== END 2024-08-07 13:20 | disposition home or self-care (01) ==
PROVIDERS: Emergency Provider Nurse Practitioner Family
DX: B34.9 Viral infection, unspecified (principal); J06.9 Acute upper respiratory infection, unspecified; F12.90 Cannabis use, unspecified, uncomplicated; M32.9 Systemic lupus erythematosus, unspecified; I10 Essential (primary) hypertension; K21.9 Gastro-esophageal reflux disease without esophagitis
CPT/HCPCS: 87804; 99212; G0463

== ENCOUNTER 2024-09-12 13:35 | Outpatient (CLI) | payer OTHER, SELFPAY ==
--- NOTE | ~2024-09-12 | MM_ITS ---
EXAMINATION: MM screening yanelis BI w thad HISTORY: Screening TECHNIQUE: Craniocaudal and mediolateral oblique 3-D tomosynthesis images were obtained and synthetic 2-D images were generated. CAD analysis was submitted and interpreted. COMPARISON: 10/14/2022 and 09/15/2022 BREAST PARENCHYMAL COMPOSITION: There are scattered areas of fibroglandular density. FINDINGS: Interval development of subcentimeter asymmetries within the upper outer and upper inner ri ght breast for which spot compression views followed by an ultrasound is recommended. Otherwise stable parenchymal pattern without suspicious microcalcifications or architectural distorti on. IMPRESSION: Interval development of subcentimeter asymmetries within the upper outer and upper inner right breast for which spot compression views followed by an ultrasound is recommended. BI-RADS Category 0: Incomplete: Needs additional imaging evaluation. Reviewed, dictated and finalized at location A. IMPRESSION: Interval development of subcentimeter asymmetries within the upper outer and up per inner right breast for which spot compression views followed by an ultrasou nd is recommended. BI-RADS Category 0: Incomplete: Needs additional imaging evaluation.
== END 2024-09-12 13:36 | disposition home or self-care (01) ==
PROVIDERS: PCP Physician Assistant; Visit Provider Physician Assistant
DX: Z12.31 Encounter for screening mammogram for malignant neoplasm of breast (principal); R92.8 Other abnormal and inconclusive findings on diagnostic imaging of breast
CPT/HCPCS: 77063; 77067

== ENCOUNTER 2024-09-22 08:46 | Outpatient (CLI) | payer OTHER, SELFPAY ==
--- NOTE | ~2024-09-22 | MMUS_ITS ---
EXAMINATION: US breast RT complete, MM diagnostic yanelis RT w thad HISTORY: Palpable right breast lump TECHNIQUE: Additional 3-D tomosynthesis images of the right breast were performed and synthetic 2-D i mages were generated. CAD analysis was submitted and interpreted. High resolution complete right [facility] st ultrasound was performed. COMPARISON: Comparison to multiple prior studies sequentially, with oldest reviewed study dated 09/15. BREAST PARENCHYMAL COMPOSITION: Not dense: There are scattered areas of fibroglandular density. FINDINGS: MAMMOGRAPHIC FINDINGS: There are small masses in the upper central aspect of the right breast, middle third. There are no yoo spicious calcifications or architectural distortion. ULTRASOUND: Complete US of all 4 quadrants of the right breast/s and retroareolar region was reviewed. At 1:00, 6 cm from the nipple there is a 4 mm cyst. At 1:00, 7 cm from the nipple there is 3 mm cyst. At 2:00, 7 cm from the nipple there is a small irregular shaped anechoic mass measuring 6 mm, likely benign cy sts. At 11:00, 2 cm from the nipple there is a 4 mm cyst. IMPRESSION: 1. Probable benign cyst of the right breast 2:00, 7 cm from the nipple, although margins are slightly irregular. 2. Recommend 6 month follow-up Limited right breast ultrasound recommended. BI-RADS category 3, probably benign findings. Reviewed, dictated and finalized at location A. IMPRESSION: 1. Probable benign cyst of the right breast 2:00, 7 cm from the nipple, althoug h margins are slightly irregular. 2. Recommend 6 month follow-up Limited right breast ultrasound recommended. BI-RADS category 3, probably benign findings.
== END 2024-09-22 08:47 | disposition home or self-care (01) ==
LOC: MICIMG 08:47
PROVIDERS: PCP Physician Assistant; Visit Provider Student in an Organized Health Care Education/Training Program
DX: R92.8 Other abnormal and inconclusive findings on diagnostic imaging of breast (principal)
CPT/HCPCS: 76641; 77061; 77065; G0279

== ENCOUNTER 2024-09-27 20:29 | Emergency (ER) | payer OTHER, SELFPAY ==
--- NOTE | ~2024-09-27 | CT_ITS ---
CT of the Abdomen and Pelvis: Indication: Abdominal pain Technique: 2.5 mm axial scans were obtained through the abdomen and pelvis following intravenous adm inistration of 100 cc of Omnipaque 350. Dose reduction technique was used on this scan by utilizing a utomated exposure control and iterative reconstruction technique. The dose-length product (DLP) was 7 12.80 mGy-cm. Findings: Scans through the lung bases are unremarkable. The liver, spleen, pancreas, gallbladder, and kidneys are within normal limits. There is a 6.4 x 3.5 x 6.5 cm multilobulated right adrenal mass. 1 cm left adrenal nodule present. No evidence of aortic a neurysm. No lymphadenopathy. No bowel obstruction or bowel wall thickening. There is no evidence to suggest acute appendicitis. Images through the pelvis were performed. Urinary bladder unremarkable. No pelvic mass. No ascites. Impression: 6.4 x 3.5 x 6.5 cm right adrenal mass. Additional 1 cm left adrenal nodule. MR recommended to assess for adenoma. More aggressive lesion, especially in the right adrenal gland given size of the lesion, most considered. Reviewed, dictated and finalized at [facility]. Impression: 6.4 x 3.5 x 6.5 cm right adrenal mass. Additional 1 cm left adrenal nodule. MR recommended to assess for adenoma. More aggressive lesion, especially in the ri ght adrenal gland given size of the lesion, most considered.
[2024-09-27 20:30] VITALS: BP 172/94; PULSE 69; RESP 16; TEMP 36.6; O2SAT 99
--- OUTSIDE RECORDS SUMMARY | 2024-09-27 20:31 | XMS_ITS | Clinical Summary ---
Author Organization [facility] Address [address] [place] [address] Care Team Providers Care Felt Hooker Name Role Phone Richie Garcia MD Unavailable Unavailable Flakito Pavon MD Primary Care Provider [phone] Source Comments [facility],non-owned Affiliates and Associated Physician Practices is amultiple site organization consisting of ambulatory clinics and hospital sitesin [place], [place], [place] and [place]. This disclosure is being madepursuant to the Care Everywhere program and may not contain all information available regarding this patient. Last updated 18.[facility] Allergies Active Allergy Reactions Criticality Noted Date Comments Azithromycin 09/12/2010 vomiting Hydroxychloroquine Sulfate 3 Medications * Be aware that medications may not be up to date on this document. Alwaysverify current medications with the patient. Medication Sig Dispensed Refills Start Date End Date Status magnesium hydroxide (MILK OF MAGNESIA) 400 MG/5ML suspensionIndications:C onstipation,Other and unspecified nonspecific immunological findings,Peripheral neuropathy,Transaminiti s,Anemia,MARES (dyspnea on exertion),Insomnia,Cram p in limb Take 15 mL by mouth as needed for Constipation. 105 mL 0 03/19/2011 Active ketorolac (TORADOL) 10 MG tablet Take 1 Tab by mouth every 6 hours as needed for Pain. 20 Tab 0 05/05/2013 Active lisinopril-hydrochlorot hiazide (PRINZIDE; ZESTORETIC) 10-12.5 MG tabletIndications:HTN (hypertension) Take 1 Tab by mouth once daily. 90 Tab 3 05/13/2013 Active gabapentin (NEURONTIN) 300 MG capsuleIndications:Lauren pheral neuropathy Take 1 Cap by mouth 3 times daily. 90 Cap 5 05/13/2013 Active prochlorperazine (COMPAZINE) 10 MG tabletIndications:Heada shruti(784.0) Take 1 Tab by mouth every 8 hours as needed for Nausea/Vomiting (Headache). 30 Tab 2 05/13/2013 Active rabeprazole EC (ACIPHEX) 20 MG tabletIndications:GERD (gastroesophageal reflux disease) Take 1 Tab by mouth once daily. 30 Tab 5 07/15/2013 Active dicyclomine (BENTYL) 10 MG capsule TAKE ONE CAPSULE FOUR TIMES DAILY 120 Cap 2 05/30/2014 Active Active Problems Problem Noted Date Diagnosed Date Insomnia 07/16/2013 Systemic lupus erythematosus 01/28/2012 HTN (hypertension) 11/04/2011 Somatization disorder 10/09/2011 IBS (irritable bowel syndrome) 10/09/2011 Overview (01/22/2012): Better on Gluten free and off NSAIDs MARES (dyspnea on exertion) 03/19/2011 Overview (07/10/2011): 03/19/2011 walks steps but gets SOB with one flight of steps 07/10/2011 ECHO normal SOB Peripheral neuropathy 03/19/2011 Overview (10/09/2011): Small fiber peripheral neuropathy Raynaud's phenomenon 03/19/2011 Headache 01/11/2010 Overview (04/29/2015): Immunizations Name Administration Dates Next Due INFLUENZA VACCINE 2012 Family History Medical History Relation Name Comments Diabetes Father Diabetes Maternal Aunt Diabetes Maternal Grandmother Schizophrenia Mother Relation Name Status Comments Father Alive Maternal Aunt Maternal Grandmother Mother Alive Social History Tobacco Use Types Packs/Day Years Used Date Smoking Tobacco: Never Alcohol Use Standard Drinks/Week Comments Yes 1.7 (1 standard drink = 0.6 oz p ure alcohol) occasionally Sex and Gender Information Value Date Recorded Sex Assigned at Not on file Gender Identity Not on file Sexual Orientation Not on file Last Filed Vital Signs Vital Sign Reading Time Taken Comments Blood Pressure 102/60 07/18/2013 9:35 AM PROJECT/PRODUCTION MANAGER IMAGING Pulse 71 07/15/2013 12:08 PM PROJECT/PRODUCTION MANAGER IMAGING Temperature 36.9 C (98.4 F) 07/15/2013 12:08 PM PROJECT/PRODUCTION MANAGER IMAGING Respiratory Rate 21 05/05/2013 12:27 AM PROJECT/PRODUCTION MANAGER IMAGING Oxygen Saturation 100% 05/05/2013 12:27 AM PROJECT/PRODUCTION MANAGER IMAGING Inhaled Oxygen Concentration - - Weight 74.8 kg (165 lb) 07/18/2013 9:35 AM PROJECT/PRODUCTION MANAGER IMAGING Height 167.6 cm (5' 6 ) 07/18/2013 9:35 AM PROJECT/PRODUCTION MANAGER IMAGING Body Mass Index 26.63 07/18/2013 9:35 AM PROJECT/PRODUCTION MANAGER IMAGING Plan of Treatment Health Maintenance Due Date Last Done Comments LIPID TESTING 1982 MAMMOGRAM 1982 DTAP/TDAP/TD VACCINES (1 - Tdap) 2001 HEPATITIS B VACCINE (1 of 3 - 19+ 3-dose series) 2001 PAP SMEAR 04/08/2014 04/08/2011, 09/04/2010, 04/23/2009 COVID-19 VACCINE (1 - 2023-2 5 season) 2024 DEPRESSION SCREENING 06/22/2024 INFLUENZA VACCINE (Season Ended) 2025 2012 ZOSTER VACCINE (1 of 2) 02/06/2032 HEPATITIS C SCREENING Completed 07/18/2013 , 03/19/2011, 09/04/2010 HIV SCREENING Completed 07/18/2013 HIB VACCINE Aged Out No longer eligi ble based on patient's age to complete this topic HPV VACCINE Aged Out No longer eligi ble based on patient's age to complete this topic MENINGOCOCCAL (Group B) VACCINE SHARED DECISION-MAKING Aged Out No longer eligible based on patient's age to complete this topic MENINGOCOCCAL GROUPS A/C/Y/W VACCINE Aged Out No longer eligible b ased on patient's age to complete this topic PNEUMOCOCCAL VACCINE Aged Out No long er eligible based on patient's age to complete this topic Procedures Procedure Name Priority Date/Time Associated Diagnosis Comments HEPATITIS C ANTIBODY Routine 07/18/2013 10:50 AM PROJECT/PRODUCTION MANAGER IMAGING HIV-1 HIV-2 ANTIBODIES W RFLX REFLEXED Routine 07/18/2013 10:50 AM PROJECT/PRODUCTION MANAGER IMAGING PAP IG RFLX HPV ASCU Routine 04/08/2011 from Last 3 Months or Most Recently Relevant to Health Maintenance Results * HIV-1 HIV-2 ANTIBODIES W RFLX REFLEXED (07/18/2013 10:50 AM PROJECT/PRODUCTION MANAGER IMAGING) HIV 1/2 EIA Antibody NON-REACT AMANDA NON-REACT AMANDA [facility] ([facility]) Comment: A Nonreactive HIV-1/2 antibody result does not exclude HIV infection since the time frame for seroconversion is variable. If acute HIV infection is suspected, antibody retesting and nucleic acid amplification (HIV DNA/RNA) testing is recommended. Effective October 17, 2013, [email or web address] will discontinue the HIV-1 Western Blot confirmation and replace it with an HIV-1/HIV-2 differentiation assay. This assay exhibits increased sensitivity over the HIV-1 Western Blot test and simultaneously differentiates HIV-1 antibody reactivity from HIV-2 antibody reactivity. Test Performed at: [place] [id number] JULIO KIRK DO,MPH 07/18/2013 10:5 0 AM PROJECT/PRODUCTION MANAGER IMAGING 07/18/2013 10:53 AM PROJECT/PRODUCTION MANAGER IMAGING Justina Aguero MD LAB - CHEMISTRY FELIPE SUAZO Performing Organization Address [facility]/ZIP Co de Phone Number [facility] ([facility]) * HEPATITIS C ANTIBODY (07/18/2013 10:50 AM PROJECT/PRODUCTION MANAGER IMAGING) Hepatitis C Antibody NON-REACTI VE NON-REACT [facility] ([facility]) Signal/Cutoff 0.07 <1.00 [facility] ([facility]) Comment: Test Performed at: [place] [id number] JULIO KIRK DO,MPH 07/18/2013 10:5 0 AM PROJECT/PRODUCTION MANAGER IMAGING 07/18/2013 10:53 AM PROJECT/PRODUCTION MANAGER IMAGING Justina Aguero MD LAB - CHEMISTRY [facility]ELIPE [facility]) * PAP IG RFLX HPV ASCU (04/08/2011) 04/08/2011 Narrative [facility] - 04/14/2011 7:56 AM CDT Preferred Lab:->[facility] Minal Galaviz MD LAB - PATH OLOGY/CYTOLOGY ORDERABLES [facility] from Last 3 Months or Most Recently Relevant to Health Maintenance Care Teams Felt Hooker Relationship Specialty Start Date End Date Flakito Pavon MD PCP - General 09/30/22 Richie Garcia MD Rheumatology 03/18/11
[2024-09-27 20:45] LABS: Basophils Absolute Auto 0.1 K/mm3 (0.0-0.1); Basophils Percent Auto 0.5 % (0.2-1.2); Eosinophils Percent Auto 0.4 % (0-4.4); Hematocrit 37.9 % (37.0-47.0); Hemoglobin 11.6 g/dL (12.0-15.0); Immature Granulocyte Absolute 0.03 K/mm3 (0.00-0.031); Immature Granulocyte Percent A 0.3 % (0-0.5); Lymphocytes Percent Auto 21.8 % (18.3-44.2); Mean Corpuscular HGB Conc 30.6 g/dl (32-36); Mean Corpuscular Hemoglobin 22.1 pg (26-34); Mean Corpuscular Volume 72.3 fl (80-100); Mean Platelet Volume 9.3 fl (7.4-10.4); Monocytes Absolute Auto 0.8 K/mm3 (0.1-0.6); Monocytes Percent Auto 8.3 % (2.6-8.5); Neutrophils Absolute Auto 6.6 K/mm3 (1.3-6.7); Neutrophils Percent Auto 68.7 % (45.5-73.1); Platelet Count Result 488 k/mm3 (150-375); Red Blood Count 5.24 M/mm3 (4.2-5.4); Red Cell Distribution Width 16.2 % (11.5-14.5); White Blood Count 9.6 K/mm3 (4.5-10.0)
[2024-09-27 20:54] LABS: Microcytosis 1+ (NORMAL); Platelet Estimate Increased (Adequate)
[2024-09-27 20:55] LABS: Schistocytes None Seen
[2024-09-27 20:56] LABS: Alanine Aminotransferase 22 U/L (6-35); Albumin Level 4.9 g/dL (3.5-5.1); Alkaline Phosphatase 99 U/L (38-126); Anion Gap 13 mmol/L (4-12); Aspartate Amino Transferase 37 U/L (14-36); Bilirubin,Total 0.2 mg/dL (0.2-1.3); Blood Urea Nitrogen 17 mg/dL (7-17); Calcium 9.1 mg/dL (8.4-10.2); Carbon Dioxide 25 mmol/L (22-30); Chloride 102 mmol/L (98-107); Estimated CRCL calculation 117 ml/min; Estimated Glomerular Filt Rate > 60; Glucose 99 mg/dL (65-110); Lipase 210 U/L (23-300); Sodium 140 mmol/L (137-145)
[2024-09-28 00:52] LABS: Add Urine Microscopic? YES; Appearance Urine Cloudy (Clear); Bacteria Urine None Seen /hpf; Bilirubin Urine Negative (Negative); Blood Urine Negative (Negative); Color Urine Yellow (Yellow); Glucose Urine UA Negative (Negative); Ketones Urine Negative (Negative); Leukocyte Esterase Ur Negative LEU/UL (Negative); Nitrate Urine Negative (Negative); Non Pathogenic Casts 0-2; Protein Urine Negative (Negative); Specific Grav Ur 1.026 (1.001-1.035); Squamous Epithelial Cell Urine None Seen /hpf (Few); Urobilinogen Urine 0.2 mg/dL (<2.0); WBC Urine 0-5 /hpf (0-3); pH Urine 6.5 (5.0-9.0)
[2024-09-28 01:39] VITALS: BP 124/89; PULSE 57; RESP 12; O2SAT 99
--- NOTE | 2024-09-28 01:45 | ED_ITS ---
HPI - Abdominal Pain General Chief Complaint: Abdominal Pain Stated Complaint: abd pain, cramping Time Seen by Provider: 09/28/24 01:07 Source: patient Mode of arrival: ambulatory Limitations: no limitations History of Present Illness HPI narrative: Patient is a 44-year-old female, past medical history of IBS, lupus, who presents the ED with report of lower abdominal cramping. Patient reports pain began around 730 and was fairly severe. Described as a cramping pain. States she often has cramps related to her IBS, but they do not typically last this long. She attempted taking Tylenol and a Percocet at home without improvement. Then prompted here for further evaluation. Pain is slightly improved currently. Reports some nausea today, denies vomiting, diarrhea, constipation. Last bowel movement was today and normal. Denies rectal bleeding or melena. Denies fevers, urinary complaints. Related Data Home Medications ?Medication ?Instructions ?Recorded ?Confirmed ?Last Taken ?Type cholecalciferol (vitamin D3) 50 50 mcg PO DAILY 04/05/21 03/01/24 09/17/22 History mcg (2,000 unit) capsule vitamin B complex (B 1 tablet PO DAILY 09/17/22 03/01/24 09/15/22 History Complex-Vitamin B12 tablet) Allergies Allergy/AdvReac Type Severity Reaction Status Date / Time azithromycin Allergy Mild Nausea and Verified 09/27/24 20:29 Vomiting Review of Systems 2 Review of Systems: All systems reviewed & are unremarkable except as noted in HPI. All systems reviewed & are unremarkable except as noted in HPI and below PMFSH Past Medical History Medical History Constipation by delayed colonic transit Preeclampsia 2018 GERD (gastroesophageal reflux disease) Irritable bowel syndrome Lupus (systemic lupus erythematosus) Benign essential HTN Surgical History Surgical History History of Social History Social History Social History: Smoking status: Never smoker Second hand tobacco smoke exposure: No Alcohol intake: current Alcohol use details: 1-2 drinks per month Substance use: current Substance use type: marijuana Other substance usage details: gummy Do You Feel Safe in your Home?: Yes Lack of Transportation: No Lack of Food: Never True Current Housing: I Have Housing Concerned About Future Housing: No Difficulty Paying Gas/Electric Bills: No Difficulty Paying for Meds: No Currently Unemployed: No Education: Don't Know Difficulty w/ Childcare or Family Care: No Living arrangements: with family Occupation/Education: occupation Gender identity (if verbalized by the patient): Female Sexual Orientation (if Verbalized by the Patient): Straight or Heterosexual Spiritual care concerns: No Exam 2 Narrative: GENERAL: Well appearing, obese with BMI of 33.8, non-toxic, in no acute distress. HEAD: Normocephalic, atraumatic. RESPIRATORY: Airway patent, respirations nonlabored. Clear to auscultation bilaterally, no rales, rhonchi, wheezing. CARDIOVASCULAR: Regular rate and rhythm without murmurs, rubs, or gallops. ABDOMINAL: Soft, mild diffuse tenderness throughout lower abdomen, no rebound, nondistended. Normoactive BS. MUSCULOSKELETAL: Moves all extremities. No gross deformities. SKIN: Warm, dry, normal color. NEURO: A&O X3. Speech clear. PSYCHIATRIC: Appropriate mood and affect. Normal interaction. Course Vital Signs Vital signs: Vital Signs Temperature 98 F 09/27/24 20:30 Pulse Rate 69 09/27/24 20:30 Respiratory Rate 16 09/27/24 20:30 Blood Pressure 172/94 H 09/27/24 20:30 Pulse Oximetry 99 09/27/24 20:30 Oxygen Delivery Room Air 09/27/24 20:30 Temperature 98 F 09/27/24 20:30 Pulse Rate 64 09/28/24 04:19 Respiratory Rate 20 09/28/24 04:19 Blood Pressure 128/83 09/28/24 04:19 Pulse Oximetry 99 09/28/24 04:19 Oxygen Delivery Room Air 09/27/24 20:30 MDM - Abdominal Pain MDM Narrative Medical decision making narrative: Patient presented to ED with lower abdominal pain, cramping. History of IBS. VSS upon arrival. Patient reports pain is somewhat improved currently. She did not want anything further for pain at this time. CBC with white blood cell count of 9.6. Stable H&H. Consistent with previous records. CMP is unremarkable. Minimal anion gap of 13. Stable kidney function. Stable electrolytes. UA without signs of infection. CT scan of abdomen/pelvis obtained does not show any acute findings related to patient's symptoms. Does show evidence of a right adrenal mass. I made patient aware of this that she will need further imaging as an outpatient. Patient has remained hemodynamically stable throughout ED stay. Feel she is safe for discharge home at this time. Discussed possibility of gas pains, gastroenteritis. Advised to continue her home Bentyl, recommended follow-up with GI, given strict return precautions. Patient in agreement with plan. Feels comfortable going home. Discharged in stable condition. Medical Records Attestation: I reviewed the patient's medical records. Lab Data Attestation: I reviewed the patient's lab results. 09/27/24 20:40 09/27/24 20:40 Labs: Lab Results 09/27/24 09/28/24 Range/Units 20:40 00:37 WBC 9.6 (4.5-10.0) K/mm3 RBC 5.24 (4.2-5.4) M/mm3 Hgb 11.6 L (12.0-15.0) g/dL Hct 37.9 (37.0-47.0) % MCV 72.3 L (80-100) fl MCH 22.1 L (26-34) pg MCHC 30.6 L (32-36) g/dl RDW 16.2 H (11.5-14.5) % Plt Count 488 H (150-375) k/mm3 MPV 9.3 (7.4-10.4) fl Immature Gran % (Auto) 0.3 (0-0.5) % Neut % (Auto) 68.7 (45.5-73.1) % Lymph % (Auto) 21.8 (18.3-44.2) % [place] % (Auto) 8.3 (2.6-8.5) % Eos % (Auto) 0.4 (0-4.4) % Baso % (Auto) 0.5 (0.2-1.2) % Lymph # (Auto) 2.10 (0.9-3.2) K/mm3 [place] # (Auto) 0.8 H (0.1-0.6) K/mm3 Eos # (Auto) 0.0 (0-0.3) K/mm3 Baso # (Auto) 0.1 (0.0-0.1) K/mm3 Abs Immat Gran (auto) 0.03 (0.00-0.031) K/mm3 Absolute Neuts (auto) 6.6 (1.3-6.7) K/mm3 Absolute Nucleated RBC 0.000 (0.0-0.012) K/mm3 Band Neutrophils % Not Reportable Nucleated RBC % 0.0 (0.0-0.2) % Platelet Estimate Increased (Adequate) Microcytosis 1+ (NORMAL) Schistocytes None seen Sodium 140 (137-145) mmol/L Potassium 4.0 (3.4-5.0) mmol/L Chloride 102 (98-107) mmol/L Carbon Dioxide 25 (22-30) mmol/L Anion Gap 13 H (4-12) mmol/L BUN 17 (7-17) mg/dL Creatinine 0.62 L (0.7-1.0) mg/dL Estim Creat Clear Calc 117 ml/min Estimated GFR > 60 (59 - ) Glucose 99 (65-110) mg/dL Calcium 9.1 (8.4-10.2) mg/dL Total Bilirubin 0.2 (0.2-1.3) mg/dL AST 37 H (14-36) U/L ALT 22 (6-35) U/L Alkaline Phosphatase 99 (38-126) U/L Total Protein 9.0 H (6.3-8.2) g/dL Albumin 4.9 (3.5-5.1) g/dL Lipase 210 (23-300) U/L Urine Color Yellow (Yellow) Urine Appearance Cloudy H (Clear) Urine pH 6.5 (5.0-9.0) Ur Specific Tucker 1.026 (1.001-1.035) Urine Protein Negative (Negative) mg/dL Urine Glucose (UA) Negative (Negative) mg/dL Urine Ketones Negative (Negative) mg/dL Ur Blood (Man) Negative (Negative) Urine Nitrate Negative (Negative) Urine Bilirubin Negative (Negative) Urine Urobilinogen 0.2 (<2.0) mg/dL Leukocyte Esterase Rfl Negative (Negative) OTIS/UL Urine RBC 3-5 H (0-2) /hpf Urine WBC 0-5 (0-3) /hpf Ur Squamous Epith Cells None seen (Few) /hpf Urine Bacteria None seen /hpf Urine Casts 0-2 Imaging Data Attestation: I personally reviewed and interpreted this imaging study as follows: Radiologist's impression: ITS Impressions Abdomen/Pelvis CT 09/28/24 05:30 Impression: 6.4 x 3.5 x 6.5 cm right adrenal mass. Additional 1 cm left adrenal nodule. MR recommended to assess for adenoma. More aggressive lesion, especially in the right adrenal gland given size of the lesion, most considered. STAT RAD CT abd/pelvis: No acute finding. Recommend CT adrenal for right large 6 cm mass. Discharge Plan Discharge Clinical Impression: Bilateral lower abdominal cramping, History of IBS, Adrenal mass Patient Disposition: Home Condition: Stable Instructions: Antibiotic Form, Irritable Bowel Syndrome (ED), Abdominal Pain (ED) Additional Instructions: Continue Tylenol, ibuprofen, dicyclomine as needed for pain. Zofran as needed for nausea. Stay well hydrated. Follow-up with your primary care doctor and/or GI for further evaluation. Recommend clear liquids or bland diet until symptoms improve, such as bananas, rice, applesauce, toast, or crackers. Return to the ED if you experience worsening or severe symptoms, unable to keep down food or drink, severe pain, fevers, rectal bleeding, vomiting blood, or any other symptoms of concern. Your imaging here did show an abnormality of your right adrenal gland. You will need further imaging of this as an outpatient. Follow-up with your primary care doctor for this. Patient Language: Romanian Prescriptions: New ondansetron 4 mg tablet,disintegrating 4 mg PO Q8H PRN (Reason: nausea and vomiting) Qty: 15 0RF No Action cholecalciferol (vitamin D3) 50 mcg (2,000 unit) capsule 50 mcg PO DAILY vitamin B complex [B Complex-Vitamin B12] Tablet 1 tablet PO DAILY montelukast 10 mg tablet See Rx Instructions .ROUTE .COMPLEX Qty: 90 1RF Dose Instruction: Take 1 tablet by mouth once daily Rx Instructions: Take 1 tablet by mouth once daily amlodipine 10 mg tablet See Rx Instructions .ROUTE .COMPLEX Qty: 90 1RF Dose Instruction: Take 1 tablet by mouth once daily Rx Instructions: Take 1 tablet by mouth once daily lisinopril-hydrochlorothiazide 20-25 mg tablet See Rx Instructions .ROUTE .COMPLEX Qty: 90 1RF Dose Instruction: Take 1 tablet by mouth once daily Rx Instructions: Take 1 tablet by mouth once daily fluticasone propionate 50 mcg/actuation spray,suspension See Rx Instructions .ROUTE .COMPLEX Qty: 16 5RF Dose Instruction: Use 1 spray(s) in each nostril once daily Rx Instructions: Use 1 spray(s) in each nostril once daily omeprazole 40 mg capsule,delayed release(DR/EC) See Rx Instructions .ROUTE .COMPLEX Qty: 90 1RF Dose Instruction: Take 1 capsule by mouth once daily Rx Instructions: Take 1 capsule by mouth once daily dicyclomine 10 mg capsule See Rx Instructions .ROUTE .COMPLEX Qty: 180 3RF Dose Instruction: Take 1 capsule by mouth twice daily Rx Instructions: Take 1 capsule by mouth twice daily Follow-up/Referrals: Ramana Vega MD [Primary Care Provider] - Carlos Kenny MD [Physician] - (GI) Time of Disposition: 04:01 Sign Out Sign Out Data: Patient Sign Out occurred on 09/28/24 at 03:58. Patient's care was discussed, and care was transferred from Otilia Vegas PA-C to Easton Hurst MD.
--- OUTSIDE RECORDS SUMMARY | 2024-09-28 02:07 | XMS_ITS | Clinical Summary ---
Author Organization [facility] Address [address] [place] [address] Care Team Providers Care All Source Collection Manager Name Role Phone Richie Garcia MD Unavailable Unavailable Flakito Pavon MD Primary Care Provider [phone] Source Comments [facility],non-owned Affiliates and Associated Physician Practices is amultiple site organization consisting of ambulatory clinics and hospital sitesin [place], [place], [place] and [place]. This disclosure is being madepursuant to the Care Everywhere program and may not contain all information available regarding this patient. Last updated 18.[facility] Allergies Active Allergy Reactions Criticality Noted Date [...] Comments Blood Pressure 102/60 07/18/2013 9:35 AM COAL PASSER Pulse 71 07/15/2013 12:08 PM COAL PASSER Temperature 36.9 C (98.4 F) 07/15/2013 12:08 PM COAL PASSER Respiratory Rate 21 05/05/2013 12:27 AM COAL PASSER Oxygen Saturation 100% 05/05/2013 12:27 AM COAL PASSER Inhaled Oxygen Concentration - - Weight 74.8 kg (165 lb) 07/18/2013 9:35 AM COAL PASSER Height 167.6 cm (5' 6 ) 07/18/2013 9:35 AM COAL PASSER Body Mass Index 26.63 07/18/2013 9:35 AM COAL PASSER Plan of Treatment Health Maintenance Due Date [...] HEPATITIS C ANTIBODY Routine 07/18/2013 10:50 AM COAL PASSER HIV-1 HIV-2 ANTIBODIES W RFLX REFLEXED Routine 07/18/2013 10:50 AM COAL PASSER PAP IG RFLX HPV ASCU Routine 04/08/2011 from Last 3 Months or Most Recently Relevant to Health Maintenance Results * HIV-1 HIV-2 ANTIBODIES W RFLX REFLEXED (07/18/2013 10:50 AM COAL PASSER) HIV 1/2 EIA Antibody NON-REACT AMANDA NON-REACT [facility]ANDA [facility] ([facility]) Comment: A Nonreactive HIV-1/2 antibody result does not exclude HIV infection since the time frame for seroconversion is variable. If acute HIV infection is suspected, antibody retesting and nucleic acid amplification (HIV DNA/RNA) testing is recommended. Effective October 17, 2013, [employer] will discontinue the HIV-1 Western Blot confirmation and replace it with an HIV-1/HIV-2 differentiation assay. This assay exhibits increased sensitivity over the HIV-1 Western Blot test and simultaneously differentiates HIV-1 antibody reactivity from HIV-2 antibody reactivity. Test Performed at: [employer] [id number] JULIO KIRK DO,MPH 07/18/2013 10:5 0 AM COAL PASSER 07/18/2013 10:53 AM COAL PASSER Justina Aguero MD LAB - CHEMISTRY FELIPE SUAZO Performing Organization Address [facility]/ZIP Co de Phone Number [facility] ([facility]) * HEPATITIS C ANTIBODY (07/18/2013 10:50 AM COAL PASSER) Hepatitis C Antibody NON-REACTI VE NON-REACT [facility] ([facility]) Signal/Cutoff 0.07 <1.00 [facility] ([facility]) Comment: Test Performed at: [place] [id number] JULIO KIRK DO,MPH 07/18/2013 10:5 0 AM COAL PASSER 07/18/2013 10:53 AM COAL PASSER Justina Aguero MD LAB - CHEMISTRY [facility]ELIPE [facility]) * PAP IG RFLX HPV ASCU (04/08/2011) 04/08/[address] [facility] - 04/14/2011 7:56 AM CDT Preferred Lab:->[facility] Minal Galaviz MD LAB - PATH OLOGY/CYTOLOGY ORDERABLES [facility] from Last 3 Months or Most Recently Relevant to Health Maintenance Care Teams All Source Collection Manager Relationship Specialty Start Date End Date Flakito Pavon MD PCP - General 09/30/22 Richie Garcia MD Rheumatology 03/18/11
[2024-09-28 03:49] VITALS: BP 138/85; PULSE 60; RESP 18; O2SAT 100
[2024-09-28 04:19] VITALS: BP 128/83; PULSE 64; RESP 20; O2SAT 99
== END 2024-09-28 04:20 | disposition home or self-care (01) ==
PROVIDERS: Emergency Provider Preventive Medicine Aerospace Medicine; PCP Family Medicine
DX: R10.30 Lower abdominal pain, unspecified (principal); D44.11 Neoplasm of uncertain behavior of right adrenal gland; K21.9 Gastro-esophageal reflux disease without esophagitis; K58.9 Irritable bowel syndrome, unspecified; M32.9 Systemic lupus erythematosus, unspecified; I10 Essential (primary) hypertension
CPT/HCPCS: 36415; 74177; 80053; 81001; 83690; 85025; 99284; Q9967

== ENCOUNTER 2024-10-18 13:49 | Outpatient (CLI) | payer OTHER, SELFPAY ==
--- NOTE | ~2024-10-18 | MR_ITS ---
EXAMINATION: MR renal wo/w con DATE: 10/18/2024 14:54 INDICATION: Mass on adrenal gland TECHNIQUE: Magnetic resonance imaging (MRI) of the abdomen was performed without and with 18 mL Multi yeimi intravenous contrast. Sequences included coronal T2-weighted SS-FSE, coronal and axial FS 2D-F IESTA, axial STIR FSE, axial T2-weighted SS-FSE, axial T2-weighted FS SS-FSE, axial diffusion-weighte d SE, axial dual-echo T1-weighted FSPGR, and axial and coronal T1-weighted LAVA. Postcontrast axial T 1-weighted LAVA images were obtained in a time course. Postcontrast coronal T1-weighted LAVA images w ere obtained. COMPARISON: CT dated 10/08/2024 FINDINGS: Heart size is normal. No pericardial or pleural effusion. Liver, gallbladder, spleen and pancreas are normal. There are subcentimeter T2 hyperintense nonenhancing cysts at both kidneys. There is a 7.3 x 6.6 x 3.7 cm right adrenal mass with marked signal dropout on the opposed phase imaging and low sign al intensity on the T1 weighted fat saturated images consistent with an adenoma. There is also signal dropout associated with a smaller 1.1 cm left adrenal adenoma. Visualized bowels are unremarkable. N o pathologically enlarged abdominal lymphadenopathy. Bone marrow signal is normal throughout. IMPRESSION: 1. 7.3 similar right adrenal adenoma and 1.1 cm left adrenal adenoma, both with diagnostic prominent signal dropout on opposed phase imaging. Reviewed, dictated and finalized at location B.
== END 2024-10-18 13:50 | disposition home or self-care (01) ==
LOC: MICIMG 13:50
PROVIDERS: PCP Family Medicine; Visit Provider Physician Assistant
DX: E27.8 Other specified disorders of adrenal gland (principal)
CPT/HCPCS: 74183; A9577

== ENCOUNTER 2024-12-05 08:58 | Emergency (ER) | payer OTHER, SELFPAY ==
[2024-12-05 09:04] VITALS: BP 126/94; PULSE 80; RESP 16; TEMP 36.5; O2SAT 100
--- NOTE | 2024-12-05 09:11 | ED_ITS ---
HPI - URI/Sore Throat General Chief Complaint: Upper Respiratory Infection Stated Complaint: SINUS/EYE REDNESS Time Seen by Provider: 12/05/24 09:11 Source: patient, RN notes reviewed and old records reviewed Mode of arrival: ambulatory Limitations: no limitations History of Present Illness HPI Narrative: 44-year-old female presents to the [facility] with 3 day history of sore throat, cough. Did take cold medicine. No treatment today Yesterday started with some eye redness and crusting as well as matting. Use eyedrops 1 time yesterday. Onset (ago): day(s) (3) Related Data Home Medications ?Medication ?Instructions ?Recorded ?Confirmed ?Last Taken ?Type cholecalciferol (vitamin D3) 50 50 mcg PO DAILY 04/05/21 11/01/24 09/17/22 History mcg (2,000 unit) capsule vitamin B complex (B 1 tablet PO DAILY 09/17/22 12/05/24 09/15/22 History Complex-Vitamin B12 tablet) fexofenadine 180 mg tablet 180 mg PO DAILY 11/03/24 12/05/24 Unknown History (Rupali Allergy) Allergies Allergy/AdvReac Type Severity Reaction Status Date / Time azithromycin Allergy Mild Nausea and Verified 12/05/24 09:05 Vomiting Review of Systems Review of Systems: All systems reviewed & are unremarkable except as noted in HPI and below Constitutional: Constitutional: Reports no additional constitutional complaints Eyes: Eyes: Reports as per HPI ENT: Reports as per HPI Cardiovascular: Cardiovascular: Reports no additional cardiovascular complaints, Denies chest pain and Denies dyspnea Respiratory: Respiratory: Reports no additional respiratory complaints, Denies chest congestion, Denies cough and Denies dyspnea Musculoskeletal: Musculoskeletal: Reports no additional musculoskeletal complaints Integumentary/Breasts: Skin/Breast: Reports system reviewed and no additional complaints, except as docu PMFSH Past Medical History Medical History Constipation by delayed colonic transit Preeclampsia 2018 GERD (gastroesophageal reflux disease) Irritable bowel syndrome Lupus (systemic lupus erythematosus) Benign essential HTN Surgical History Surgical History History of Social History Social History Social History: Smoking status: Never smoker Second hand tobacco smoke exposure: No Alcohol intake: current Alcohol use details: 1-2 drinks per month Substance use: current Substance use type: marijuana Other substance usage details: gummy Do You Feel Safe in your Home?: Yes Lack of Transportation: No Lack of Food: Never True Current Housing: I Have Housing Concerned About Future Housing: No Difficulty Paying Gas/Electric Bills: No Difficulty Paying for Meds: No Currently Unemployed: No Education: Don't Know Difficulty w/ Childcare or Family Care: No Living arrangements: with family Occupation/Education: occupation Gender identity (if verbalized by the patient): Female Sexual Orientation (if Verbalized by the Patient): Straight or Heterosexual Spiritual care concerns: No Comments At the time of my signature, I reviewed and agree with the nursing past medical, surgical, social, and family history. There is no relevant family history pertinent to the patient complaint. Exam Const: General: cooperative, no acute distress, well developed, alert, uncomfortable and well nourished Nutritional Appearance: well nourished Orientation/consciousness: patient oriented x3 Limitations: no limitations HENMT: Head: normal to inspection Ears: hearing grossly normal bilaterally, external ears normal, TM's normal bilaterally, mastoids normal, no periauricular adenopathy and Abnormal EAC present Face/Nose/Sinus: Normal external nose present, Abnormal mucous membranes and turbinates present boggy; not erythematous, Nasal discharge present clear and face symmetric Face and sinus: normal facial exam, face symmetric and no ecchymosis Mouth: Yes Normal oral and palatal mucosa present, Yes lip normal, Yes tongue normal and Yes moist mucous membranes Throat: posterior oropharynx normal, uvula midline, postnasal drainage and no uvular edema Eyes: General: appearance normal, both eyes and all related structures Alignment and Position: alignment normal Conjunctivae: conjunctival abnormality bilateral conjunctival injection Neck: Neck: normal visual inspection, full ROM, no lymphadenopathy and no meningeal signs Chest: Chest palpation & inspection: normal inspection of the chest Resp: Effort & Inspection: normal respiratory effort and able to speak in complete sentences Auscultation: clear to auscultation bilaterally, no crackles, no rales, no rhonchi and no wheezes Cardio: Rate: regular rate Skin: General skin exam: normal color and no rashes or lesions noted Neuro: General: patient oriented x3, gait normal, moves all extremities and no meningeal signs Cognition (Neuro): normal cognition Speech: normal speech Gait exam (Neuro): Normal gait present Extrem: General: normal to inspection, full ROM, capillary refill normal and normal gait Psych: Appearance: grossly normal and well kempt Mental Status: mental status grossly normal Speech and movement: Normal speech and movement present and Clear speech present Affect: normal affect Attitude: cooperative Course Course Level of Care: Express Care Visit Vital Signs Vital signs: Vital Signs Temperature 97.7 F 12/05/24 09:04 Pulse Rate 80 12/05/24 09:04 Respiratory Rate 16 12/05/24 09:04 Blood Pressure 126/94 H 12/05/24 09:04 Pulse Oximetry 100 12/05/24 09:04 Oxygen Delivery Room Air 12/05/24 09:04 Temperature 97.7 F 12/05/24 09:04 Pulse Rate 80 12/05/24 09:04 Respiratory Rate 16 12/05/24 09:04 Blood Pressure 126/94 H 12/05/24 09:04 Pulse Oximetry 100 12/05/24 09:04 Oxygen Delivery Room Air 12/05/24 09:04 Reviewed MDM - URI/Sore Throat MDM Narrative Medical decision making narrative: Patient sitting in exam room. Patient is nontoxic, vitals stable. Patient is requesting to be ?tested for everything. ? Patient is flu COVID and strep were negative, will culture for strep Patient's exam most consistent with viral URI. As well as conjunctivitis. Will treat conjunctivitis with antibiotic eyedrops otherwise discussed [id number] treatment. Patient appropriate for outpatient treatment with close follow Discharge instructions reviewed with patient, as well as provided in writing per nursing staff. The instructions also include specific and strict return/GO TO THE ER as well as f/u information. All questions have been answered, and the patient deny any further questions with discharge and discharge plan. Some parts of this dictation were generated by voice recognition software and may contain typographical and/or grammatical inaccuracies. Differential Diagnosis Differential diagnosis: Likely upper respiratory infection, otitis media, s inusitis, viral infection, bronchitis, influenza and pharyngitis Lab Data Labs: Lab Results 12/05/24 Range/Units 09:32 POC Influenza A Ag Negative (Negative) POC Influenza B Ag Negative (Negative) POC SARS CoV-2 Ag Negative (Negative) POC Grp A Strep Screen Negative (Negative) Reviewed Critical Care Time Critical Care Time Critical Care Time: No Discharge Plan Discharge Clinical Impression: Sinusitis, Conjunctivitis, Upper respiratory infection Patient Disposition: Home Condition: Stable Instructions: Antibiotic Form, Sinusitis (ED), Upper Respiratory Infection (ED), Conjunctivitis (ED) Additional Instructions: Your rapid strep swab was negative today at [facility]. A throat culture will be sent to the laboratory for further testing. If the test is positive, you will receive a phone call within 48 hours and an appropriate antibiotic will be initiated at that time. Your rapid COVID test were negative Your rapid flu test was negative Your symptoms are likely due to a viral illness, which is not treated with antibiotics. Typically viral infections last 7-10 days, can linger for couple of weeks. It is very important to treat your symptoms. Drink plenty of water, Gatorade, Pedialyte, ice pops or Jell-O. -Alternate Tylenol and Motrin per package directions for fever or pain. You can alternate every 4 hours -Antihistamine medication such as Zyrtec/Claritin/Rupali during the day can help improve symptoms. -doing daily nasal irrigations can help relieve pressure your sinuses. Things like a Neti pot -Use Flonase twice a day for 5 days then daily to help reduce the inflammation and dry up your sinuses. -You can also use Coricidin HBP or Mucinex. Be sure to drink plenty of water with this medication at least 8 ounces with every dose and it is important to drink 8 to 10 glasses of water per day. Water is a natural decongestant -Eat and drink things that are easy to swallow, like tea or soup, or popsicles. -Oral rinses such as: Salt water gargles and/or may use topical anesthetic (eg. Chloraseptic spray) or lozenges to relieve dryness or throat pain). -Frequent hand washing or hand speech correction consultant is one of the best ways to prevent spread of infection. -Using a vaporizer or humidifier at night will also help thin secretions and help with coughing up phlegm. -Follow up with primary care provider in 7-10 days if condition is not improving - For new or worsening symptoms go directly to the nearest ER Apply a cool, damp compress to your affected eye. Be sure to use a clean cloth each time to avoid spreading the infection. Gently clean your eyes with wet cotton balls or pads to remove crusty buildup or irritating discharge. Do not wear contact lenses until your eyes are clear. Use eye drops as prescribed Maintain good hygiene and only touch your eyes with freshly washed hands. You should follow-up with an eye doctor within the next 72 hours Andreas: Jg- [phone] [facility] [phone] [facility] [place] [phone] [place]: [facility] [phone] or [phone] [facility] [phone] [facility] [phone] [facility] [phone] [facility]- [phone] Patient Language: Iranian Prescriptions: New ofloxacin 0.3 % drops See Rx Instructions EACH EYE .COMPLEX Qty: 5 0RF Rx Instructions: put 1-2 drps into affected eye(s) every 2-4 h x 2 days, then 1-2 drps 4 times/day days 3-7 No Action cholecalciferol (vitamin D3) 50 mcg (2,000 unit) capsule 50 mcg PO DAILY dexamethasone 1 mg tablet 1 mg PO ONCE Qty: 1 0RF Rx Instructions: Take 1 tab PO at 2300 vitamin B complex [B Complex-Vitamin B12] Tablet 1 tablet PO DAILY amlodipine 10 mg tablet See Rx Instructions .ROUTE .COMPLEX Qty: 90 1RF Dose Instruction: Take 1 tablet by mouth once daily Rx Instructions: Take 1 tablet by mouth once daily lisinopril-hydrochlorothiazide 20-25 mg tablet See Rx Instructions .ROUTE .COMPLEX Qty: 90 1RF Dose Instruction: Take 1 tablet by mouth once daily Rx Instructions: Take 1 tablet by mouth once daily fluticasone propionate 50 mcg/actuation spray,suspension See Rx Instructions .ROUTE .COMPLEX Qty: 16 5RF Dose Instruction: Use 1 spray(s) in each nostril once daily Rx Instructions: Use 1 spray(s) in each nostril once daily omeprazole 40 mg capsule,delayed release(DR/EC) See Rx Instructions .ROUTE .COMPLEX Qty: 90 1RF Dose Instruction: Take 1 capsule by mouth once daily Rx Instructions: Take 1 capsule by mouth once daily dicyclomine 10 mg capsule See Rx Instructions .ROUTE .COMPLEX Qty: 180 3RF Dose Instruction: Take 1 capsule by mouth twice daily Rx Instructions: Take 1 capsule by mouth twice daily fexofenadine [Rupali Allergy] 180 mg tablet 180 mg PO DAILY montelukast 10 mg tablet See Rx Instructions .ROUTE .COMPLEX Qty: 90 1RF Dose Instruction: Take 1 tablet by mouth once daily Rx Instructions: Take 1 tablet by mouth once daily Follow-up/Referrals: Lori Yates PA-C [Primary Care Provider] - 2 Weeks (express care follow up) Stand Alone Forms: Work/School Release IP Time of Disposition: 09:48
[2024-12-05 09:55] LABS: EDCOVIDSCREEN Negative (Negative); EDINFLUASCREEN Negative (Negative); EDINFLUBSCREEN Negative (Negative); EDSTREPNEGPOS1 Negative (Negative)
== END 2024-12-05 09:52 | disposition home or self-care (01) ==
PROVIDERS: Emergency Provider Nurse Practitioner; PCP Physician Assistant
DX: J32.9 Chronic sinusitis, unspecified (principal); H10.9 Unspecified conjunctivitis; J06.9 Acute upper respiratory infection, unspecified; Z20.822 Contact with and (suspected) exposure to COVID-19; M32.9 Systemic lupus erythematosus, unspecified; I10 Essential (primary) hypertension; K21.9 Gastro-esophageal reflux disease without esophagitis; F12.90 Cannabis use, unspecified, uncomplicated
CPT/HCPCS: 87081; 87426; 87804; 87880; 99213; G0463

== ENCOUNTER 2025-06-06 08:17 | Outpatient (CLI) | payer OTHER, SELFPAY ==
--- NOTE | ~2025-06-06 | US_ITS ---
EXAMINATION: US breast RT limited INDICATION: 45-year old female; BI-RADS 3, evaluate probably benign right breast mass. COMPARISON: 09/22/2024 and 10/14/2022 TECHNIQUE: Targeted sonographic evaluation of the probably benign masses in the right breast was completed. FINDINGS: A 0.6 cm anechoic mass at 2:00 location 7 cm from the nipple in the RIGHT breast reidentified is unchanged. A 0.3 cm anechoic mass at 1:00 location 6 cm from the nipple in the RIGHT breast reidentified has not significantly changed. A 0.4 cm anechoic mass at 11:00 location 2 cm from the nipple in the RIGHT breast reidentified is unchanged. IMPRESSION: Benign right breast masses compatible with cysts have not significantly changed. RECOMMENDATION: Annual mammography due in August 2025. BI-RADS 2, BENIGN Reviewed, dictated and finalized at location A. EL OPERATOR IMPRESSION: Benign right breast masses compatible with cysts have not significantly changed . RECOMMENDATION: Annual mammography due in August 2025. BI-RADS 2, BENIGN
== END 2025-06-06 08:18 | disposition home or self-care (01) ==
PROVIDERS: PCP Physician Assistant; Visit Provider Surgery
DX: N63.11 Unspecified lump in the right breast, upper outer quadrant (principal); N63.12 Unspecified lump in the right breast, upper inner quadrant; R92.8 Other abnormal and inconclusive findings on diagnostic imaging of breast
CPT/HCPCS: 76642